=== PATIENT | female | born 1960 | race Two or more races ===

== ENCOUNTER 2022-01-10 17:51 | Inpatient (IN) | payer MEDICAID ==
[~2022-01-10] VITALS: Ht 158.8 cm; Wt 53.5 kg
--- NOTE | 2022-01-10 17:57 | NUR ---
WAGNER FROM HOME, SON CALLED PARAMEDICS FOR INCREASING CONFUSION TODAY. BG [id number]. TO ER BED 7, HOOKED TO MONITOR, VSS. CHANGED TO HOSP GOWN, NOTED W LACY CATHETER WITH LIGHT YELLOW URINE OUTPUT. PATIENT AAO x 4, ORIENTED TO NAME, PLACE, MONTH BUT NOT THE YEAR. ALSO ABLE TO ANSWER WHY IS SHE IN THE HOSP. PATIENT STATES SHE IS NOT ABLE TO EAT AND SLEEP FOR COUPLE OF DAYS. CHANGED TO HOSP GOWN, WARM BLANKET PROVIDED. WILL CONTINUE TO MONITOR.
--- NOTE | 2022-01-10 18:03 | NUR ---
DR JOHNSON AT BEDSIDE
--- NOTE | 2022-01-10 18:10 | NUR ---
RAPID COVID DONE AND SENT TO LAB.
--- NOTE | 2022-01-10 18:20 | NUR ---
URINE SAMPLE COLLECTED FROM LACY CATHETER. SENT TO LAB
[2022-01-10] MEDS ORDERED: ATOR80TA PO (18:41)
[2022-01-10] MEDS ORDERED: PANT40TA49 PO (18:41)
[2022-01-10] MEDS ORDERED: MIDO10TA PO (18:41)
[2022-01-10] MEDS ORDERED: GABA300C PO (18:41)
[2022-01-10] MEDS ORDERED: HYDR-3972 PO (18:41)
[2022-01-10] MEDS ORDERED: METH500T6 PO (18:41)
[2022-01-10 19:00] LABS: BILIRUBIN,URINE NEGATIVE (NEGATIVE); COLOR,URINE YELLOW (YELLOW); LEUKOCYTE ESTERASE ,URINE SMALL (NEGATIVE); NITRITE, URINE NEGATIVE (NEGATIVE); PROTEIN,URINE NEGATIVE (NEGATIVE); UGLUCOSE NEGATIVE (NEGATIVE); UROBILINOGEN,URINE 0.2 EU/dL (0.2)
--- NOTE | 2022-01-10 19:02 | NUR ---
MOVE SHEET SUBMITTED.
--- NOTE | 2022-01-10 19:16 | NUR ---
REPORT GIVEN TO JENY SWAIN FOR ARLET
[2022-01-10 19:30] LABS: CALCIUM, SERUM 8.6 mg/dL (8.5-10.1); CARBON DIOXIDE 18 mmol/L (21-32); CHLORIDE 87 mmol/L (98-107); CREATININE 0.4 mg/dL (0.6-1.3); GLUCOSE 118 mg/dL (74-106); POTASSIUM 3.5 mmol/L (3.5-5.1); UREA NITROGEN, BLOOD 12 mg/dL (7-18)
[2022-01-10 19:33] LABS: SODIUM SERUM 120 mmol/L (136-145)
[2022-01-10 20:23] LABS: BASOPHILS % (AUTO) 0.3 % (0.0-2.0); HEMATOCRIT 30 % (33-45); HEMOGLOBIN 10.6 g/dL (11.5-14.8); LYMPHOCYTES # (AUTO) 2.6 K/uL (0.8-4.8); LYMPHOCYTES % (AUTO) 22.1 % (20.0-44.0); MEAN CORPUSCULAR HGB CONC 35 g/dl (31.0-36.0); MEAN CORPUSCULAR VOLUME 85 fL (82-100); MONOCYTES # (AUTO) 0.7 K/uL (0.1-1.30); NEUTROPHILS # (AUTO) 8.3 K/uL (1.8-8.9); NEUTROPHILS % (AUTO) 71.6 % (43.0-81.0); PLATELET COUNT (AUTO) 353 K/uL (150-450); RED BLOOD CELL COUNT(AUTO) 3.53 MIL/uL (4.0-5.2); WHITE BLOOD COUNT (AUTO) 11.6 K/uL (4.3-11.0)
[2022-01-10 20:48] LABS: BILIRUBIN,TOTAL 0.6 mg/dL (0.2-1.0)
[2022-01-10 20:49] LABS: ALANINE AMINOTRANSFERASE 26 U/L (12-78); ALBUMIN 3.3 g/dL (3.4-5.0); ALKALINE PHOSPHATASE 57 U/L (46-116); ASPARTATE AMINOTRANSFERASE 18 U/L (15-37); BILIRUBIN,DIRECT 0.1 mg/dL (0.0-0.2)
[2022-01-10 21:46] LABS: BACTERIA,URINE 3+ /HPF (None Seen); SQUAMOUS EPITHELIAL CELL,UR 0-2 /HPF (None Seen)
[2022-01-10] MEDS ORDERED: MAG HYDROX/AL HYDROX/SIMETH 30 ML UDC PO PRN (23:00)
[2022-01-10] MEDS ORDERED: ACETAMINOPHEN 325 MG TABLET PO PRN (23:00)
[2022-01-10] MEDS ORDERED: HYDROCODONE/APAP 5/325MG TABLET PO PRN (23:00)
[2022-01-10] MEDS ORDERED: MAGNESIUM HYDROXIDE 30 ML UDC PO PRN (23:00)
[2022-01-10] MEDS ORDERED: ZOLPIDEM TARTRATE 5 MG TABLET PO PRN (23:00)
[2022-01-10] MEDS ORDERED: ONDANSETRON HCL/PF 4 MG/2 ML VIAL IVP PRN (23:00)
[2022-01-10] MEDS ORDERED: Z GUARD REMEDY 4 OZ OINT TP PRN (23:00)
--- NOTE | 2022-01-10 23:00 | NUR ---
RN RECEIVING NOTE (FROM ER) PATIENT ARRIVED TO THE UNIT FROM THE ER VIA [facility]. SHE WAS TRANSFERRED BY STAFF FROM [facility] TO BED. PATIENT STABLE W/ VS WNL. A/OX3. NO S/S OF DISTRESS, BREATHING W/O DIFFICULTY ON ROOM AIR. LFA #18 INTACT AND PATENT. TELE MONITOR APPLIED AND REVEALED SR 93. BELONGINGS ACCOUNTED FOR AND LOGGED INTO SHEET AND PLACED IN CHART. PATIENT WAS GIVEN CALL URBINA AND INSTRUCTED ON ITS USE. PATIENT ORIENTED TO THE UNIT. SAFETY MEASURES IN PLACE: BED LOCKED & AT LOWEST POSITION, RAILS UP X2, CALL URBINA WITHIN REACH. WILL CONTINUE TO MONITOR PATIENT.
--- NOTE | 2022-01-10 23:10 | NUR ---
PT TRANSPORTED TO UNIT ON GURNETY WITH EMT AND RN AT BEDSIDE WITH ACLS PROTOCOL. NAD NOTED DURING TRANSPOORT
[2022-01-11] MEDS ORDERED: CEFTRIAXONE 1 G VIAL ONE (00:01)
[2022-01-11] MEDS: IV NS 0.9% 1,000 ML IV PRN ×2 (00:05→12:05)
[2022-01-11] MEDS: CEFTRIAXONE 1 G in IV D5W 50 ML IV SCH ×2 (00:25→23:20)
--- NOTE | 2022-01-11 00:30 | NUR ---
RN NOTE CONTACTED PATIENT'S SON, ARIEL ([phone]), PER PATIENT'S REQUEST AND SPOKE WITH HIM. PATIENT STABLE; WILL CONTINUE TO MONITOR PATIENT.
[2022-01-11 02:34] VITALS: BP 119/76
[2022-01-11 04:53] VITALS: BP 110/52
[2022-01-11 06:34] LABS: BASOPHILS % (AUTO) 0.3 % (0.0-2.0); EOSINOPHILS % (AUTO) 0.9 % (0.0-6.0); HEMATOCRIT 27 % (33-45); HEMOGLOBIN 9.6 g/dL (11.5-14.8); LYMPHOCYTES # (AUTO) 2.3 K/uL (0.8-4.8); LYMPHOCYTES % (AUTO) 22.6 % (20.0-44.0); MEAN CORPUSCULAR HGB CONC 35 g/dl (31.0-36.0); MEAN CORPUSCULAR VOLUME 86 fL (82-100); MONOCYTES # (AUTO) 1.3 K/uL (0.1-1.30); MONOCYTES % (AUTO) 12.9 % (2.0-12.0); NEUTROPHILS # (AUTO) 6.4 K/uL (1.8-8.9); NEUTROPHILS % (AUTO) 63.3 % (43.0-81.0); PLATELET COUNT (AUTO) 285 K/uL (150-450); RED BLOOD CELL COUNT(AUTO) 3.18 MIL/uL (4.0-5.2); WHITE BLOOD COUNT (AUTO) 10.2 K/uL (4.3-11.0)
--- NOTE | 2022-01-11 06:39 | NUR ---
RN CLOSING NOTE PATIENT AWAKE IN BED. A/OX3. NO S/S OF DISTRESS, BREATHING W/O DIFFICULTY ON ROOM AIR. RAC #18 INTACT AND PATENT W/ NS 90ML/HR. TELE MONITOR REVEALS SR 73. SAFETY MEASURES IN PLACE: BED LOCKED AND AT LOWEST POSITION, RAILS UP X2, CALL URBINA WITHIN REACH. WILL ENDORSE TO NEXT SHIFT FOR ARLET.
[2022-01-11 07:16] LABS: CALCIUM, SERUM 8.7 mg/dL (8.5-10.1); CREATININE 0.4 mg/dL (0.6-1.3); MAGNESIUM 1.9 mg/dL (1.8-2.4); PHOSPHORUS 3.3 mg/dL (2.5-4.9)
[2022-01-11] MEDS: GABAPENTIN 300 MG CAPSULE PO SCH ×3 (08:21→16:57)
[2022-01-11] MEDS: METHOCARBAMOL (500MG) 500 MG TABLET PO SCH ×4 (08:21→21:11)
[2022-01-11] MEDS: PANTOPRAZOLE 40 MG TABLET.DR PO SCH (08:21)
[2022-01-11] MEDS: MIDODRINE HCL (5MG) 5 MG TABLET PO SCH ×3 (08:22→16:58)
--- NOTE | 2022-01-11 09:27 | NUR ---
RN OPENING NOTES RECEIVED PATIENT RESTING COMFORTABLY IN BED . A/OX3. NO S/S OF DISTRESS, BREATHING W/O DIFFICULTY ON ROOM AIR. LFA #18 INTACT AND PATENT. TELE MONITORING 58 SINUS BRADYCARDIA. SAFETY MEASURES IN PLACE: BED LOCKED & AT LOWEST POSITION, RAILS UP X2, CALL URBINA WITHIN REACH. WILL CONTINUE TO MONITOR PATIENT.
--- NOTE | 2022-01-11 09:50 | NUR ---
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 CALLED DR MOISÉS RODRIGUEZ AND DR HALE FOR SURGICAL AND DPM CONSULTS. RECOMMENDATIONS MADE FOR SKIN PROTECTION AND WOUND CARE. DISCUSSED WITH NURSING STAFF. IN AGREEMENT WITH PLAN OF CARE. Addendum: 01/11/22 at 0955 by HARRISON LEE WNDNU PT IS ON ISOFLEX LOW AIRLOSS BED.
--- NOTE | 2022-01-11 10:09 | NUR ---
NOTED WITH EPISODE OF DIARRHEA MD MADE AWARE WITH ORDER FOR C-DIFF TESTING
[2022-01-11] MEDS: DAKINS QUARTER STRENGTH (0.125%) 480 ML BOTTLE TOP SCH (11:42)
[2022-01-11] MEDS: POTASSIUM CHLORIDE 20 MEQ TAB.PRT.SR PO SCH ×3 (11:42→16:06)
[2022-01-11 12:00] VITALS: BP 72/41
--- NOTE | 2022-01-11 12:41 | NUR ---
SS consult requested for stage 4 four sacral wound from home and no home health. Pt. is a 61-year-old female who was admitted to [facility] on 01/10/2022 due to altered mental status. Upon SS consult, pt. is alert and oriented x4. Pt. presented with a depressed mood and congruent affect. Pt. presented with a normal thought process. Pt. appears well groomed and provided appropriate eye contact. manufacturing planner explored pt.s social support. Pt. stated that her son Junaid ([phone]) is her caregiver and lives [place] [address] [place] [address]. Pt. stated that she applied for [facility]. Pt. stated that her sisters also come once a week to bathe her. Pt. stated that she is not ambulatory and uses a wheelchair. Pt. stated that her son assists her with her ADLs. manufacturing planner offered pt. senior resources and pt. accepted. manufacturing planner explored pt.s psychiatric history. Pt. stated she does not have a psychiatric diagnosis. Pt. stated she does not have current suicidal ideation. Pt. stated that she does have suicidal ideation occasionally. Pt. stated that when she sees she cant use her hands she thinks what is the point. manufacturing planner notified pt.'s nurse and recommended a psych consult. manufacturing planner offered pt. mental health resources to [place] [address] ([phone]). Pt. denied homicidal ideation. Pt. denied visual and auditory hallucinations. Plan: Upon discharge, pt. will return to [address] [place] [address] and receive caregiving from her son Junaid ([phone]). manufacturing planner provided the following resources. ABUSE PREVENTION: ELDER ABUSE HOTLINE (06/01) ADULT PROTECTIVE SERVICES HOTLINE LONG-TERM CARE [facility] Region AREA ON AGING (HOTLINE) ADULT DAY HEALTH CARE CARE CENTERS: Private pay or [facility] funded adult day care [facility] Day Health Care [facility] , [facility] Services , [facility] , [facility] Day Health Care , [facility] Adult Day Health Care , [facility] Adult Daycare Center , [place] ONE Generation Center , [facility] Adult Center , [place] ALZHEIMERS DISEASE/DEMENTIA: Alzheimers Association Helpline [facility] Chapter www.alz.org/[facility] Department of Aging www.lacity.org Family Caregiver [place] www.caregiver.org [place] Caregiver Resources Center/Family Support www.[facility].org CANCER RESOURCES: [place] Cancer Society www.cancer.org Cancer Support Community www.CancerSupportVvsb.org: CancerCare www.cancercare.org [facility] Cancer Support [place] www.[facility] [place].org COMMUNITY HEALTH ASSOCIATIONS: AARP www.aarp.org ALS Association (ask for Kristan) www.als.org [place] Diabetes Association www.diabetes.org [place] Heart Association www.heart.org [place] Lung Association www.lungusa.org [place] Parkinson Disease Association www.apdaparkinson.org Libyan Cayce , www.redcross.org Arthritis Foundation www.arthritis.org Crohns & Colitis Foundation of [place] www.ccfa.org/chapters/[place] National Multiple Sclerosis Society www.nationalmssociety.org Myasthenia Gravis Foundation www.myasthenia-ca.org National Stroke Association www.stroke.org CONSERVATORSHIP & GUARDIANSHIP: AARP Gladis Gimenez Legal Services Center for Health Care Rights Eldercare Information and Referral Half Backer Foundation [facility]: [facility] Referral Service [facility] Legal Services Office of the Public Guardian [place] EYESIGHT DISORDER RESOURCES: [place] Macular Degeneration Foundation [facility] www.[facility].org GRIEF AND BEREAVEMENT RESOURCES: The [facility] Place , [facility] THE HOPE Connection , [facility] Bereavement Center , [place] HEARING DISORDER RESOURCES: [place] Telephone Access Program Deaf and Disabled Telecommunications Program www.ddtp.[facility].ca.gov HearRx Hearing Centers ([place]) Better Hearing Systems , [place] GLAD ([facility] Agency on Deafness) V/ TTY; American Indian Policy Specialist , [facility] Hearing [facility] -low income hearing aid assistance www.Startcappshearingfoundation.org [facility] , [place] HELP AT HOME CAREGIVER SUPPORT: In Home Support Services (Must have Medi-Andry to be eligible) *Ask for a list of agencies that provide services to assist with care in the home. Local Senior Centers also have listings of care providers. HOME SAFETY MODIFICATIONS AND EQUIPMENT: Senior [facility] have additional referrals. [place] Housing and Community Investment Dept. Handyworker Program (low income) or Visit http://hcidla.lacity.org/tll-gqtayh-xt for more information National Seating and Mobility and/or ; Forever Active www.foreverBedbathmore.commed.vArmour Stay Home Safe www.Stayhomesafe.com LIFE ALERT RESPONSE SYSTEM: JumpChat Services 730-944-1585 www. Vita Coco Life Alert 416-834-6592 wwwTaplet Life Station 019-081-7266 wwwImpulseFlyeration.vArmour Safe Return 930-276-7962 www.alz.or/safereturn Cell Phones for Seniors www.Holvi MEALS AND FOOD PROGRAMS: [place] Meals on Wheels [phone] [place] Meals on Wheels [phone] [facility] [phone] [place] to the Homebound [phone] [place] [facility] to the Homebound [phone] [facility] to the Homebound [phone] [facility] to the Homebound [phone] [facility] Hospital[facility] [phone] [facility] [phone] ONE Generation [phone] [facility] [phone] [facility] [phone] Meals on Wheels [phone] For all ages: $6.85/ meal w side. Delivered M-F from 10 am-1pm. Application and payment is done over the phone. Frozen meals available for weekends. Emergency Food [facility] [phone] [facility] Profile Shaper Operator [phone] [facility] [phone] K[place]it [facility]- Brown bag lunches [phone] [facility] [phone] MEAL/GROCERY DELIVERY PROGRAMS: Cate [facility] Gourmet Meals [phone]- [facility] [phone]- [facility] Magic Kitchen [phone] Moms Meals [phone] (ask [place] for Discount Select grocery stores may provide delivery. MEDICAL INSURANCE SUPPORT SERVICES: Center for Health Care Rights [phone] Health Insurance Counseling/Advocacy Programs (HICAP)-Must have Medicare. Offers counseling for Medi-Andry eligibility [phone] [facility] of Public Profile Shaper Operator [phone] www.[facility].ca.gov Medicare [phone] www.socialsecurity.org Social Security [phone] SENIOR ACTIVITY PROGRAMS: *Contact a local senior center, adult school, recreation facility or community college for education, fitness, recreation, and social programs. Aquatic Therapy and Adapted Exercise programs through [facility] [phone] Encore at [facility] [phone] www.[facility]/encore U- Senior Friends [phone] [place] Senior Programs [phone] www.oasisnet.org Suddenly 65 www.lbtzmkma01.com SENIOR CENTERS: [facility] [phone] [facility] [place] [phone] [facility] [phone] [facility] [phone] [facility] [phone] [facility] [phone] [facility] [phone] [facility] [phone] One Generation, [facility] [phone] [facility] [phone] [facility] [phone] [facility] [phone] [facility] [phone] TRANSPORTATION: Local [facility] Centers may have applications for transportation programs and additional resources. ACCESS Services [phone] Transportation for seniors and disabled persons 7 days a week requiring 254 hr. advance reservation. Must apply and register for program bre eligible. Bimbasket [phone] or [phone] Transportation for seniors and persons with ADA card/metro disabled card in the [facility]. M-F only. Must register for services. ONE GENERATION [phone] Serves 65 years + in conjunction with Internet college internation S.L.e program. Must be registered with both programs. A to B Transport [phone] Provides wheelchair/gurney van service. Adult Medical Transport [phone] Accepts Medi-andry with prior authorization. Care Van [phone] Provides wheelchair Transport. [facility] Wide Transportation [phone] Provides gurney service Gentle [facility] [phone] Gurney Transport. [facility] Transportation [phone] wheelchair & gurney transport [facility] Transportation [phone] wheelchair & gurney transport [place] Non-Emergency Transport [phone] wheelchair & gurney transport [facility] Living Center [phone] Short Term Transportation primarily for adults with disabilities on social security income. Nominal fee may apply and a reservation is required. [employer] [phone] or [phone] [facility] [phone] [place] [address] Referral Services -[phone] For additional programs & services VETERANS RESOURCES: Submissions for Aid and Attendance should be done directly to Federal VA office locatd at : [address] [facility] [phone] National Caregiver Support Line [phone] [facility] Veterans Services Field Office [phone] [place] Department of Affairs [phone] Pension Information [phone]
--- NOTE | 2022-01-11 13:50 | NUR ---
PATIENT WENT OUT FOR MRI
--- NOTE | 2022-01-11 14:00 | NUR ---
BETADINE 10% OINTMENT UNAVAILABLE SPOKE WITH MANINDER FROM PHARMACY AND WAS INFORMED THAT THERE IS A SHORTAGE OF SUPPLY OF BETADINE .INFORMED MD AWAITING FOR ACALL BACK REGARDING NEW ORDER.
[2022-01-11 16:00] VITALS: BP 80/45
--- NOTE | 2022-01-11 16:00 | NUR ---
RECEIVED ORDER FROM MD TO KATALINA POVIDONE 10% OINTMENT . START BETADINE SOLUTION . PHARMACY MADE AWARE.
[2022-01-11] MEDS: POVIDONE-IODINE OINT 28.4 GM TUBE TP SCH (17:00)
[2022-01-11] MEDS: ENSURE ENLIVE CHOC 237 ML CAN PO SCH (17:20)
--- NOTE | 2022-01-11 18:53 | NUR ---
PER PHARMACY THERE IS A SHORTAGE OF SUPPLY FOR BETADINE .PLEASE CHECK PYXIS /CENTRAL SUPPLY IF THE BETADINE SOLUTION RUNS OUT.
--- NOTE | 2022-01-11 18:55 | NUR ---
QUALITY CONTROL TESTER CLOSING NOTES PATIENT AWAKE IN BED. A/OX3. NO S/S OF DISTRESS, BREATHING W/O DIFFICULTY ON ROOM AIR. RAC #18 INTACT AND PATENT W/ NS 90ML/HR. TELE MONITOR REVEALS SR 64. SAFETY MEASURES IN PLACE: BED LOCKED AND AT LOWEST POSITION, RAILS UP X2, CALL URBINA WITHIN REACH. WILL ENDORSE TO NEXT SHIFT FOR ARLET
--- NOTE | 2022-01-11 19:32 | NUR ---
RN OPENING NOTES RECEIVED PT IN BED, AWAKE, WITH SON AT BEDSIDE. AOx4, ABLE TO MAKE NEEDS KNOWN. ON RA AND TOLERATING WELL. NO SOB NOTED. NO S/SX OF RESPIRATORY DISTRESS NOTED. TELE MONITOR DETECTS SR WITH RATE OF 64. IV ACCESS IN RAC #18G RUNNING NS @ 90 ML/HR. SAFETY PRECAUTIONS IN PLACE: BED IN LOWEST, LOCKED POSITION, SIDERAILS UPx2, AND BRAKES ON. TABLE AND CALL LIGHT WITHIN REACH. WILL CONTINUE TO MONITOR.
[2022-01-11 20:24] VITALS: BP 79/43
[2022-01-11] MEDS ORDERED: ATORVASTATIN 40 MG TABLET PO SCH (22:00)
[2022-01-12 00:24] VITALS: BP 94/63
[2022-01-12 04:43] VITALS: BP 83/50
[2022-01-12] MEDS: IV NS 0.9% 1,000 ML IV PRN (06:30)
[2022-01-12 06:44] LABS: CALCIUM, SERUM 8.7 mg/dL (8.5-10.1); CREATININE 0.4 mg/dL (0.6-1.3)
--- NOTE | 2022-01-12 06:46 | NUR ---
RN OPENING NOTES PT IN BED, AWAKE. AOx4, ABLE TO MAKE NEEDS KNOWN. ON RA AND TOLERATING WELL. NO SOB NOTED. NO S/SX OF RESPIRATORY DISTRESS NOTED. TELE MONITOR DETECTS SR WITH RATE OF 74. IV ACCESS IN RAC #18G RUNNING NS @ 90 ML/HR. ALL ORDERS CARRIED OUT. ALL NEEDS MET. PT KEPT CLEAN AND DRY. SAFETY PRECAUTIONS IN PLACE: BED IN LOWEST, LOCKED POSITION, SIDERAILS UPx2, AND BRAKES ON. TABLE AND CALL LIGHT WITHIN REACH. WILL ENDORSE TO ONCOMING SHIFT FOR ARLET.
--- NOTE | 2022-01-12 07:30 | NUR ---
RN OPENING NOTE REPORT RECEIVED PATIENT ALERT AND AWAKE A&OX4 SITTING UP IN THE BED. ALL VSS. PATIENT SATTING AT 96% ON ROOM AIR. SR. DIET CARDIAC. IV LAC #18G RUNNING NS 0.9% @90 MLS/H PATENT AND INTACT. ALL SAFETY FALL PRECAUTIONS IN PLACE BED LOCK ON, BED ALARM ON, BED IN LOWEST POSITION, SIDE RAILS UP, CALL LIGHT WITHIN REACH. WILL CONTINUE TO MONITOR.
[2022-01-12 08:00] VITALS: BP 90/58
[2022-01-12] MEDS: ENSURE ENLIVE CHOC 237 ML CAN PO SCH ×2 (08:00→17:05)
[2022-01-12] MEDS: PANTOPRAZOLE 40 MG TABLET.DR PO SCH (09:43)
[2022-01-12] MEDS: GABAPENTIN 300 MG CAPSULE PO SCH ×3 (09:43→17:16)
[2022-01-12] MEDS: MIDODRINE HCL (5MG) 5 MG TABLET PO SCH ×3 (09:43→17:17)
[2022-01-12] MEDS: METHOCARBAMOL (500MG) 500 MG TABLET PO SCH ×3 (09:43→17:16)
[2022-01-12] MEDS: DAKINS QUARTER STRENGTH (0.125%) 480 ML BOTTLE TOP SCH (09:46)
[2022-01-12] MEDS: POVIDONE IODINE 10% TP SCH ×2 (09:46→17:06)
[2022-01-12] MEDS: POVIDONE-IODINE OINT 28.4 GM TUBE TP SCH ×2 (09:46→17:06)
[2022-01-12 12:00] VITALS: BP 89/50
[2022-01-12] MEDS ORDERED: CEPH250S PO (14:32)
[2022-01-12] MEDS ORDERED: HYDR-3972 PO (14:32)
[2022-01-12 16:00] VITALS: BP 128/78
[2022-01-12 17:17] VITALS: BP 128/78
--- NOTE | 2022-01-12 19:22 | NUR ---
RN CLOSING NOTE REPORT GIVEN. PATIENT ALERT AND AWAKE A&OX4 SITTING UP IN THE BED. ALL VSS. PATIENT SATTING AT 96% ON ROOM AIR. SR. DIET CARDIAC. IV LAC #18G RUNNING NS 0.9% @90 MLS/H PATENT AND INTACT. ALL SAFETY FALL PRECAUTIONS IN PLACE BED LOCK ON, BED ALARM ON, BED IN LOWEST POSITION, SIDE RAILS UP, CALL LIGHT WITHIN REACH. PATIENT IS TO BE MI'ED TODAY AT 1930 CALL SON ARIEL AT [phone] WHEN DISCHARGED.PATIENT EDUCATION AND INSTRUCTIONS GIVEN TO PATIENT, PICTURES TAKEN OF WOUNDS AND IN CHART.
--- NOTE | 2022-01-12 20:05 | NUR ---
ms rn notes pt picked up by ambulance pt in stable condition all paperwork was given to pt by day shift nurse. iv access removed. annalise Junaid called to inforn of pt leaving hospital
== END 2022-01-12 20:10 | disposition home or self-care (01) | DRG 463 ==
LOC: ER 18:12 → TELE 21:40
PROVIDERS: ADMIT Nurse Practitioner Acute Care; ATTEND Nurse Practitioner Acute Care
DX: N39.0 Urinary tract infection, site not specified (principal); G93.41 Metabolic encephalopathy; G82.50 Quadriplegia, unspecified; L89.153 Pressure ulcer of sacral region, stage 3; E44.0 Moderate protein-calorie malnutrition; D68.59 Other primary thrombophilia; G93.89 Other specified disorders of brain; D63.8 Anemia in other chronic diseases classified elsewhere; E87.1 Hypo-osmolality and hyponatremia; E88.09 Other disorders of plasma-protein metabolism, not elsewhere classified; L03.116 Cellulitis of left lower limb; N18.9 Chronic kidney disease, unspecified; J98.11 Atelectasis; E78.5 Hyperlipidemia, unspecified; E87.6 Hypokalemia; L97.529 Non-pressure chronic ulcer of other part of left foot with unspecified severity; Z86.73 Personal history of transient ischemic attack (TIA), and cerebral infarction without residual deficits; Z79.899 Other long term (current) drug therapy; I95.9 Hypotension, unspecified
CPT/HCPCS: 36415; 70450-TC; 70551-TC; 71045-TC; 80048-TC; 80076-TC; 81001; 83605-TC; 83735-TC; 84100-TC; 84484-TC; 85025-TC; 85730-TC; 87040-TC; 87081-TC; 87086-TC; A6253; C9803; G0378; J0696; J7030; J7060